=== PATIENT | female | born 1995 | race Caucasian/White ===

== ENCOUNTER → 2019-08-14 | Outpatient (CLI) | payer SELFPAY ==
[~2019-08-14] MED LIST: AMOX250S6 PO; DEXAMETHASONE PO; HYDR15SO6 PO; TETRACAINE LOLLIPOPS PO
--- NOTE | 2019-08-14 12:28 | Diagnostic Imaging Report ---
EXAM: SOFT TISSUE NECK. INDICATION: Neck pain. Headache. COMPARISON: None. FINDINGS: Normal alignment of the cervical spine. No substantial spondylotic change. No acute findings. Normal prevertebral soft tissues. No radiopaque soft tissue density is seen. The lung apices are clear. IMPRESSION: Normal soft tissue neck radiographs. Dictated by: Dictated on workstation # [id number]
== END ==
LOC: RAD FS 11:56
PROVIDERS: ATTEND Nurse Practitioner Family
DX: R22.1 Localized swelling, mass and lump, neck (principal); G44.209 Tension-type headache, unspecified, not intractable; Z87.828 Personal history of other (healed) physical injury and trauma
CPT/HCPCS: 70360

== ENCOUNTER → 2019-08-28 | Outpatient (CLI) | payer SELFPAY ==
--- NOTE | 2019-08-28 14:45 | Diagnostic Imaging Report ---
PROCEDURE: MR imaging of the brain without contrast. TECHNIQUE: Multiplanar, multisequence MR imaging of the brain was performed without contrast. INDICATION: Migraine headaches. COMPARISON: None. FINDINGS: No abnormal intracranial signal. Incidental cavum septum pellucidum. No restricted water diffusion or hemosiderin deposition. Normal morphology of the sella, posterior fossa and cerebellopontine angle. Normal intracranial flow voids. No hydrocephalus or extra-axial fluid collections. The orbits are unremarkable on this nondedicated exam. The paranasal sinuses and mastoids are clear. Normal bone marrow signal. IMPRESSION: No acute intracranial MRI findings. Dictated by: Dictated on workstation # [id number]
== END ==
LOC: RAD 12:34
PROVIDERS: ATTEND Nurse Practitioner Family
DX: G44.209 Tension-type headache, unspecified, not intractable (principal); Z87.828 Personal history of other (healed) physical injury and trauma; G43.909 Migraine, unspecified, not intractable, without status migrainosus
CPT/HCPCS: 70551

== ENCOUNTER 2020-06-02 14:28 | Emergency (ER) | payer SELFPAY ==
--- NOTE | 2020-06-02 14:47 | ED Respiratory ---
General Chief Complaint: Respiratory Problems Stated Complaint: COUGH; SOB; COVID+ History of Present Illness Date Seen by Provider: Jun 02, 2020 Time Seen by Provider: 14:40 Initial Comments 25-year-old female presents from the outpatient clinic with 3-day history of cough and nasal congestion. Seen in the clinic this morning and stated her heart rate was fast, she was given a prescription for an albuterol inhaler and she is used it 14 times today. She was given a call stating that she was positive for Covid and advised to come to the ER because of her shortness of air. Patient's primary complaints last few days with nasal congestion, cough and sore throat. She did vomit once last night. Denies abdominal pain, swelling of extremities or pain of her extremities. She is not a tobacco smoker, but she does vape. Denies any illicit drug use. Denies a Hx of heart problems or tachycardia. Allergies and Home Medications Allergies Coded Allergies: No Known Drug Allergies (Unverified , 11/21/13) Home Medications Amoxicillin Trihydrate 250 Mg/5 Ml Susp.recon, 1 TSP PO BID Prescribed by: SAMANTHA CORREA on 11/23/13 08 Hydrocodone Bit/Acetaminophen 15 Ml Solution, 2 TSP PO Q4H Prescribed by: SAMANTHA CORREA on 11/23/1342 Potassium Chloride 20 Meq Tab.er.prt, 20 MEQ PO DAILY Prescribed by: YEFRI DILLON on 06/02/20 172 [Dexamethasone] , 2 TSP PO DAILY Prescribed by: SAMANTHA CORREA on 11/23/13 08 [Tetracaine Lollipops] , 1 PO UD Prescribed by: SAMANTHA CORREA on 11/23/13 0842 Patient Home Medication List Home Medication List Reviewed: Yes Review of Systems Review of Systems Constitutional: see HPI; No chills, No fever; malaise; No weakness EENTM: see HPI, throat pain; No ear pain, No blurred vision, No mouth pain, No mouth swelling, No throat swelling Respiratory: cough, short of breath; No stridor; wheezing Cardiovascular: No chest pain, No edema, No palpitations, No syncope; other (rapid heart rate) Gastrointestinal: No abdominal pain; nausea, vomiting (x1) Musculoskeletal: No back pain, No joint pain, No muscle pain, No muscle stiffness Skin: No change in color, No lesions, No rash Past Txtysoy-Kuuxvk-Cfnmmx Hx Past Med/Social Hx: Reviewed Nursing Past Med/Soc Hx Physical Exam Vital Signs - First Documented 06/02/20 14:46 Temp 37.2 Pulse 169 Resp 21 B/P (MAP) 136/68 (90) Pulse Ox 98 Capillary Refill : Height: 5'8.00" Weight: 128lbs. oz. 58.995876de; BMI Method: General Appearance: WD/WN, no apparent distress Eyes: Bilateral Eye Normal Inspection, Bilateral Eye PERRL, Bilateral Eye EOMI HEENT: PERRL/EOMI, normal ENT inspection Neck: non-tender, supple Respiratory: chest non-tender, normal breath sounds, no respiratory distress, no accessory muscle use Cardiovascular: no edema, no gallop, no JVD, tachycardia (170's initially, then to 150's as she settled down without intervention) Gastrointestinal: non tender, soft Extremities: normal range of motion, non-tender, no pedal edema, no calf tenderness Neurologic/Psychiatric: no motor/sensory deficits, alert, other (anxious) Skin: normal color, warm/dry Progress/Results/Core Measures Suspected Sepsis SIRS Temperature: Pulse: Respiratory Rate: Laboratory Tests 06/02/20 14:45: White Blood Count 4.7 Blood Pressure / Mean: Laboratory Tests 06/02/20 14:45: Creatinine 0.38L, Platelet Count 185, Total Bilirubin 0.2 Results/Orders Lab Results Laboratory Tests Test 06/02/20 14:45 06/02/20 15:49 Range/Units White Blood Count 4.7 4.3-11.0 10^3/uL Red Blood Count 4.46 4.35-5.85 10^6/uL Hemoglobin 11.8 11.5-16.0 G/DL Hematocrit 36 35-52 % Mean Corpuscular Volume 80 80-99 FL Mean Corpuscular Hemoglobin 26 25-34 PG Mean Corpuscular Hemoglobin Concent 33 32-36 G/DL Red Cell Distribution Width 13.9 10.0-14.5 % Platelet Count 185 130-400 10^3/uL Mean Platelet Volume 11.6 H 7.4-10.4 FL Immature Granulocyte % (Auto) 0 % Neutrophils (%) (Auto) 69 42-75 % Lymphocytes (%) (Auto) 21 12-44 % Monocytes (%) (Auto) 10 0-12 % Eosinophils (%) (Auto) 0 0-10 % Basophils (%) (Auto) 0 0-10 % Neutrophils # (Auto) 3.3 1.8-7.8 X 10^3 Lymphocytes # (Auto) 1.0 1.0-4.0 X 10^3 Monocytes # (Auto) 0.5 0.0-1.0 X 10^3 Eosinophils # (Auto) 0.0 0.0-0.3 10^3/uL Basophils # (Auto) 0.0 0.0-0.1 10^3/uL Immature Granulocyte # (Auto) 0.0 0.0-0.1 10^3/uL Sodium Level 136 135-145 MMOL/L Potassium Level 3.2 L 3.6-5.0 MMOL/L Chloride Level 101 98-107 MMOL/L Carbon Dioxide Level 20 L 21-32 MMOL/L Anion Gap 15 H 5-14 MMOL/L Blood Urea Nitrogen 7 7-18 MG/DL Creatinine 0.38 L 0.60-1.30 MG/DL Estimat Glomerular Filtration Rate > 60 BUN/Creatinine Ratio 18 Glucose Level 131 H 70-105 MG/DL Calcium Level 8.5 8.5-10.1 MG/DL Corrected Calcium 8.7 8.5-10.1 MG/DL Total Bilirubin 0.2 0.1-1.0 MG/DL Aspartate Amino Transf (AST/SGOT) 29 5-34 U/L Alanine Aminotransferase (ALT/SGPT) 30 0-55 U/L Alkaline Phosphatase 96 40-136 U/L Total Protein 6.8 6.4-8.2 GM/DL Albumin 3.7 3.2-4.5 GM/DL Urine Color YELLOW Urine Clarity CLEAR Urine pH 6.0 5-9 Urine Specific [place] 1.020 1.016-1.022 Urine Protein NEGATIVE NEGATIVE Urine Glucose (UA) NEGATIVE NEGATIVE Urine Ketones NEGATIVE NEGATIVE Urine Nitrite NEGATIVE NEGATIVE Urine Bilirubin NEGATIVE NEGATIVE Urine Urobilinogen 0.2 < = 1.0 MG/DL Urine Leukocyte Esterase NEGATIVE NEGATIVE Urine RBC (Auto) NEGATIVE NEGATIVE Urine RBC 0-2 /HPF Urine WBC 0-2 /HPF Urine Squamous Epithelial Cells 2-5 /HPF Urine Crystals NONE /LPF Urine Bacteria NEGATIVE /HPF Urine Casts NONE /LPF Urine Mucus NEGATIVE /LPF Urine Culture Indicated NO Urine Opiates Screen NEGATIVE NEGATIVE Urine Oxycodone Screen NEGATIVE NEGATIVE Urine Methadone Screen NEGATIVE NEGATIVE Urine Propoxyphene Screen NEGATIVE NEGATIVE Urine Barbiturates Screen NEGATIVE NEGATIVE Ur Tricyclic Antidepressants Screen NEGATIVE NEGATIVE Urine Phencyclidine Screen NEGATIVE NEGATIVE Urine Amphetamines Screen NEGATIVE NEGATIVE Urine Methamphetamines Screen NEGATIVE NEGATIVE Urine Benzodiazepines Screen NEGATIVE NEGATIVE Urine Cocaine Screen NEGATIVE NEGATIVE Urine Cannabinoids Screen NEGATIVE NEGATIVE My Orders Orders - ROVENSTYEFRI NUÑEZ DO Ed Iv/Invasive Line Start (06/02/20 14:47) Cbc With Automated Diff (06/02/20 14:47) Comprehensive Metabolic Panel (06/02/20 14:47) Chest 1 View Ap/Pa Only (06/02/20 14:47) Urinalysis (06/02/20 14:47) Drug Screen Stat (Urine) (06/02/20 14:47) Ekg Tracing (06/02/20 14:47) Ns Iv 1000 Ml (Sodium Chloride 0.9%) (06/02/20 15:00) Ns Iv 1000 Ml (Sodium Chloride 0.9%) (06/02/20 15:30) Potassium Chloride (Tablet) (K Dur Table (06/02/20 15:45) Medications Given in ED Current Medications Medications Dose Ordered Sig/Kishor Route Start Time Stop Time Status Last Admin Dose Admin Potassium Chloride 20 meq ONCE ONCE PO 06/02/20 15:45 06/02/20 15:46 DC 06/02/20 15:44 20 MEQ Vital Signs/I&O 06/02/20 14:46 Temp 37.2 Pulse 169 Resp 21 B/P (MAP) 136/68 (90) Pulse Ox 98 Capillary Refill : Progress Note : Progress Note 1630- patient doing well, HR slowing from 170 to 130 now. Given 2 liters NS. Labs unremarkable w exception of mild hypokalemia. Patient admits to using 14 puffs of an inhaler given to her today. Negative UDS. Explained to pt her HR was due to Overdose on albuterol and she should only use 2 puffs q 4h. She now expresses understanding. Breathing is normal, sats 100%, CXR clear. Will continue to monitor until HR slows < 100 After nearly 3 and half hours of observation with the assumption that patient's heart rate was due to an overdose of albuterol, patient tells nurse that she has a normal resting heart rate around 120 and this has been known by her PCP (Jose). She says in the past she did take propranolol and she still has some at home. She was advised to take it for headaches and her heart rate. Evidently she states it has been observed in her PCPs clinic that her heart rate is always high and was assumed she has anxiety. She has never had a formal work-up and is never seen neonatal social worker regarding this condition. Did discuss with her I prefer she follow-up with her PCP in 1 week to consider daily medication to control her rate and I also strongly urged her to see cardiology in consultation for sinus tachycardia. She expresses understanding and agreement. ECG Initial ECG Impression Date: Jun 02, 2020 Initial ECG Rate: 160 Initial ECG Rhythm: S.Tach Initial ECG Intervals: Normal Initial ECG Impression: Normal Departure Impression Primary Impression: Sinus tachycardia Additional Impressions: Hypokalemia Adverse effect of albuterol Qualified Codes: T48.6X5A - Adverse effect of antiasthmatics, initial encounter COVID-19 Disposition: 01 HOME, SELF-CARE Condition: Improved Departure-Patient Inst. Decision time for Depature: 17:56 Referrals: SENG MALHOTRA APRN (PCP) Primary Care Physician [facility] (Family) Primary Care Physician WOO RESTREPO MD Patient Instructions: Sinus Tachycardia (DC), Hypokalemia (DC), Coronavirus Disease 2019 (COVID-19) (DC) Add. Discharge Instructions: follow up with your PCP in 7 days for re-evaluation or sooner for any further questions of concerns. Do no use your inhaler more than 2 puffs every 4 hours....as needed. Take the following vitamins: Vitamin D 4,000iu daily vitamin C 2,000mg twice daily Zinc 50mg daily Melatonin 10mg at bedtime call Dr Restrepo's office to schedule a cardiology consult regarding your resting rapid heart rate. Do not drink caffeine and do not use any nicotine products (including vaping) as these will make your heart rate faster Start the Rx for Toprol tomorrow to control your heart rate. Do not take your propranolol any longer. All discharge instructions reviewed with patient and/or family. Voiced understanding. Scripts Metoprolol Succinate (Toprol Xl) 25 Mg Tab.er.24h 25 MG PO DAILY, #30 TAB Prov: ROVENSTINE,YEFRI L DO 06/02/20 Potassium Chloride (Potassium Chloride) 20 Meq Tab.er.prt 20 MEQ PO DAILY, #5 TAB Prov: YEFRI DILLON DO 06/02/20 Work/School Note: Work Release Form Date Seen in the Emergency Department: Jun 02, 2020 Return to Work: Jun 09, 2020 YEFRI DILLON DO Jun 02, 2020 14:47
[2020-06-02 14:56] LABS: HEMATOCRIT 36 % (35-52); HEMOGLOBIN 11.8 G/DL (11.5-16.0); MEAN CORPUSCULAR HEMOGLOBIN 26 PG (25-34); MEAN CORPUSCULAR VOLUME 80 FL (80-99); WHITE BLOOD COUNT 4.7 10^3/uL (4.3-11.0)
[2020-06-02 14:57] LABS: BASOPHILS % (AUTO) 0 % (0-10); EOSINOPHILS % (AUTO) 0 % (0-10); LYMPHOCYTES % (AUTO) 21 % (12-44); MEAN CORPUSCULAR HGB CONC 33 G/DL (32-36); MEAN PLATELET VOLUME 11.6 FL (7.4-10.4); MONOCYTES # (AUTO) 0.5 X 10^3 (0.0-1.0); MONOCYTES % (AUTO) 10 % (0-12); NEUTROPHILS # (AUTO) 3.3 X 10^3 (1.8-7.8); NEUTROPHILS % (AUTO) 69 % (42-75); PLATELET COUNT 185 10^3/uL (130-400)
[2020-06-02] MEDS ORDERED: NS IV 1000 ML 1,000 ML IV SCH ×2 (15:00→15:30)
[2020-06-02 15:25] LABS: ALANINE AMINOTRANSFERASE 30 U/L (0-55); ALBUMIN 3.7 GM/DL (3.2-4.5); ALKALINE PHOSPHATASE 96 U/L (40-136); BILIRUBIN,TOTAL 0.2 MG/DL (0.1-1.0); BUN/CREATININE RATIO 18; CALCIUM 8.5 MG/DL (8.5-10.1); CARBON DIOXIDE 20 MMOL/L (21-32); CHLORIDE 101 MMOL/L (98-107); CREATININE SERUM 0.38 MG/DL (0.60-1.30); GFR ESTIMATED > 60; GLUCOSE 131 MG/DL (70-105); POTASSIUM 3.2 MMOL/L (3.6-5.0); SODIUM 136 MMOL/L (135-145); TOTAL PROTEIN 6.8 GM/DL (6.4-8.2)
[2020-06-02] MEDS ORDERED: KCL 20 MEQ TAB (K-DUR) PO ONE (15:45)
--- NOTE | 2020-06-02 15:48 | Diagnostic Imaging Report ---
EXAM: CHEST 1 VIEW AP/PA ONLY INDICATION: Shortness of air. Tachycardia. COMPARISON: None. FINDINGS: Normal heart size and pulmonary vascularity. No dense consolidation, pleural effusion or pneumothorax. No acute osseous findings. IMPRESSION: Negative chest. Dictated by: Dictated on workstation # [id number]
[2020-06-02 16:05] LABS: BILIRUBIN,URINE NEGATIVE (NEGATIVE); CLARITY,URINE CLEAR; COLOR,URINE YELLOW; GLUCOSE, URINE (UA) NEGATIVE (NEGATIVE); KETONES,URINE NEGATIVE (NEGATIVE); LEUKOCYTE ESTERASE ,URINE NEGATIVE (NEGATIVE); NITRITE,URINE NEGATIVE (NEGATIVE); PROTEIN,URINE NEGATIVE (NEGATIVE)
[2020-06-02 16:06] LABS: BACTERIA,URINE NEGATIVE /HPF; RBC,URINE 0-2 /HPF; WBC,URINE 0-2 /HPF
[2020-06-02 16:32] LABS: AMPHETAMINE SCREEN, URINE NEGATIVE (NEGATIVE); BARBITURATE SCREEN URINE NEGATIVE (NEGATIVE); BENZODIAZEPINES SCREEN URINE NEGATIVE (NEGATIVE); CANNABINOID SCREEN, URINE NEGATIVE (NEGATIVE); COCAINE SCREEN URINE NEGATIVE (NEGATIVE); METHADONE STAT NEGATIVE (NEGATIVE); METHAMPHETAMINE SCREEN URINE S NEGATIVE (NEGATIVE); OPIATE SCREEN URINE NEGATIVE (NEGATIVE); OXYCODONE STAT NEGATIVE (NEGATIVE); PROPOXYPHENE STAT NEGATIVE (NEGATIVE); TRICYCLIC ANTIDEPRESSANTS SCRE NEGATIVE (NEGATIVE)
[2020-06-02] MEDS ORDERED: POTA20TA15 PO (17:22)
[2020-06-02] MEDS ORDERED: METO-351 PO (17:55)
[2020-06-02 18:02] VITALS: BP 129/66
== END 2020-06-02 18:02 | disposition home or self-care (01) ==
LOC: EDUNIT# 14:28 → ER FS 14:30
DX: R00.0 Tachycardia, unspecified (principal); T48.6X5A Adverse effect of antiasthmatics, initial encounter; U07.1 COVID-19; E87.6 Hypokalemia; Z73.0 Burn-out
CPT/HCPCS: 36415; 71045; 80053; 80306; 81000; 85025; 93005

== ENCOUNTER 2020-07-04 04:04 | Emergency (ER) | payer SELFPAY ==
[~2020-07-04 04:04] MED LIST changes: +METO-351 PO; +POTA20TA15 PO
[2020-07-04] MEDS ORDERED: METOCLOPRAMIDE INJ 10 MG/2 ML (REGLAN) IVP ONE (04:30)
[2020-07-04] MEDS ORDERED: PROCHLORPERAZINE 10 MG/2ML INJ (COMPAZINE) IV ONE (04:30)
[2020-07-04] MEDS ORDERED: NS IV 1000 ML 1,000 ML IV SCH (04:30)
[2020-07-04] MEDS ORDERED: diphenhydrAMINE 50 MG/ML INJ (BENADRYL) IVP ONE (04:30)
[2020-07-04] MEDS ORDERED: PROC-1 PO (05:29)
--- NOTE | 2020-07-04 05:30 | ED General ---
General Chief Complaint: Head/Cervical Problems Stated Complaint: MIGRAINE Nursing Triage Note: Pt complaining of a migraine Nursing Sepsis Screen: No Definite Risk Source of Information: Patient, Family History of Present Illness Date Seen by Provider: July 04, 2020 Time Seen by Provider: 04:30 Initial Comments Patient is a 25-year-old female with a history of recurrent migraines who presents with typical migraine-like headache. Headache began yesterday while sleeping. Headache is retro-orbital, dull nonmigratory and rated moderate and waxes and wanes.. It is made worse with light sensitivity and loud noises and has partial relief with medications patient received yesterday at her PCPs office. Patient denies known triggering event. Denies sinus tenderness, congestion, sore throat, fever, cough. No neck pain, extremity weakness or loss of sensation. No other acute symptoms or complaints. Timing/Duration: 24 Hours Severity: Moderate Modifying Factors: improves with Other Associated Systoms: Other Allergies and Home Medications Allergies Coded Allergies: No Known Drug Allergies (Unverified , 11/21/13) Home Medications Amoxicillin Trihydrate 250 Mg/5 Ml Susp.recon, 1 TSP PO BID Prescribed by: SAMANTHA CORREA on 11/23/13841 Hydrocodone Bit/Acetaminophen 15 Ml Solution, 2 TSP PO Q4H Prescribed by: SAMANTHA CORREA on 11/23/13841 Metoprolol Succinate 25 Mg Tab.er.24h, 25 MG PO DAILY Prescribed by: YEFRI ALVAREZSTSAVANNAH on 06/02/20 1755 Potassium Chloride 20 Meq Tab.er.prt, 20 MEQ PO DAILY Prescribed by: YEFRI DILLON on 06/02/20 1722 [Dexamethasone] , 2 TSP PO DAILY Prescribed by: SAMANTHA CORREA on 11/23/13 0842 [Tetracaine Lollipops] , 1 PO UD Prescribed by: SAMANTHA CORREA on 11/23/13841 Patient Home Medication List Home Medication List Reviewed: Yes Review of Systems Review of Systems Constitutional: see HPI EENTM: see HPI Respiratory: see HPI Cardiovascular: see HPI Gastrointestinal: see HPI Genitourinary: see HPI Musculoskeletal: see HPI Skin: see HPI Psychiatric/Neurological: See HPI Hematologic/Lymphatic: See HPI Immunological/Allergic: see HPI All Other Systems Reviewed Negative Unless Noted: Yes Past Csxjbgd-Tpvjqo-Vzzict Hx Past Med/Social Hx: Reviewed Nursing Past Med/Soc Hx Patient Social History Alcohol Use: Denies Use Type Used: Electronic/Vapor 2nd Hand Smoke Exposure: Yes Recent Infectious Disease Expo: No Past Medical History Surgeries: Yes (bmt) Respiratory: No Cardiac: No Neurological: Yes Headaches /Migraines Genitourinary: No Gastrointestinal: No Musculoskeletal: No Endocrine: No HEENT: No Cancer: No Psychosocial: No Integumentary: No Blood Disorders: No Physical Exam Vital Signs Vital Signs - First Documented 07/04/20 04:10 Pulse 115 Resp 18 B/P (MAP) 143/87 (105) Pulse Ox 100 O2 Delivery Room Air Capillary Refill : Less Than 3 Seconds Height, Weight, BMI Height: 5'8.00" Weight: 128lbs. oz. 58.580744fq; BMI Method: General Appearance: Anxious, Moderate Distress Eyes: Bilateral Eye Normal Inspection, Bilateral Eye PERRL, Bilateral Eye EOMI HEENT: PERRL/EOMI, Normal ENT Inspection, Pharynx Normal, Moist Mucous Membranes Neck: Normal Inspection, Non Tender, Supple Respiratory: Lungs Clear Cardiovascular: Regular Rate, Rhythm Neurologic/Psychiatric: Alert, Oriented x3, No Motor/Sensory Deficits, Normal Mood/Affect, vendor management associate II-XII Norm as Tested Focused Exam Sepsis Stage: Ruled Out Progress/Results/Core Measures Suspected Sepsis Recent Fever Within 48 Hours: No Infection Criteria Present: None New/Unexplained Altered Menta: No Sepsis Screen: No Definite Risk SIRS Temperature: Pulse: 115 Respiratory Rate: 18 Blood Pressure 143 /87 Mean: 105 Results/Orders My Orders Orders - COLTON GARY Iv 1000 Ml (Sodium Chloride 0.9%) (07/04/20 04:30) Dexamethasone Injection (Decadron Injec (07/04/20 04:30) Metoclopramide Injection (Reglan Injecti (07/04/20 04:30) Prochlorperazine Injection (Compazine In (07/04/20 04:30) Diphenhydramine Injection (Benadryl Inje (07/04/20 04:30) Urine Bedside (07/04/20 04:22) Ed Iv/Invasive Line Start (07/04/20 04:59) Medications Given in ED Current Medications Medications Dose Ordered Sig/Kishor Route Start Time Stop Time Status Last Admin Dose Admin Dexamethasone Sodium Phosphate 10 mg ONCE ONCE IV 07/04/20 04:30 07/04/20 04:31 DC 07/04/20 04:36 10 MG Diphenhydramine HCl 50 mg ONCE ONCE IVP 07/04/20 04:30 07/04/20 04:31 DC 07/04/20 04:36 50 MG Metoclopramide HCl 10 mg ONCE ONCE IVP 07/04/20 04:30 07/04/20 04:31 DC 07/04/20 04:37 10 MG Prochlorperazine Edisylate 10 mg ONCE ONCE IV 07/04/20 04:30 07/04/20 04:31 DC 07/04/20 04:37 10 MG Vital Signs/I&O 07/04/20 04:10 Pulse 115 Resp 18 B/P (MAP) 143/87 (105) Pulse Ox 100 O2 Delivery Room Air Capillary Refill : Less Than 3 Seconds Blood Pressure Mean: 105 Departure Communication (Admissions) Typical migraine headache. This is not the headache worst headache of the patient's life. Headache resolved with treatment. Recommendations for home rest and PCP follow-up. Return precautions reviewed Impression Primary Impression: Migraine Disposition: HOME, SELF-CARE Condition: Critical Departure-Patient Inst. Decision time for Depature: 05:28 Referrals: SENG MALHOTRA APRN (PCP) Primary Care Physician [facility] (Family) Primary Care Physician Patient Instructions: Migraines in Adults Add. Discharge Instructions: Please go home and rest. Take Excedrin Migraine and Compazine as needed if headache returns. Otherwise follow-up with your PCP and/or neurologist for further management. Return to the ED if new or worsening symptoms. All discharge instructions reviewed with patient and/or family. Voiced understanding. Scripts Prochlorperazine Maleate (Compazine) 10 Mg Tablet 10 MG PO Q8H, #10 TAB Prov: COLTON GARY DO 07/04/20 COLTON GARY DO July 04, 2020 05:30
[2020-07-04 05:31] VITALS: BP 143/87
== END 2020-07-04 05:32 | disposition home or self-care (01) ==
LOC: EDUNIT# 04:04 → ER FS 04:07
DX: G43.909 Migraine, unspecified, not intractable, without status migrainosus (principal); Z77.22 Contact with and (suspected) exposure to environmental tobacco smoke (acute) (chronic)
CPT/HCPCS: 84703

== ENCOUNTER 2020-12-05 17:28 | Emergency (ER) | payer SELFPAY ==
[~2020-12-05] VITALS: Ht 170 cm; Wt 72.2 kg
[~2020-12-05 17:28] MED LIST changes: +PROC-1 PO
--- NOTE | 2020-12-05 17:37 | ED EENT ---
History of Present Illness General Stated Complaint: SORE THROAT; HEADACHE; DIARRHEA; NAUSEA History of Present Illness Date Seen by Provider: Dec 05, 2020 Time Seen by Provider: 17:37 Initial Comments 25-year-old female presents with some nausea, headache, sore throat. She reports it hurts to swallow she feels like her throat is on fire. Patient reports that the symptoms started 2 days ago. Patient was seen yesterday and tested negative for strep influenza and Covid. She presents today because she is continuing to feel bad. Patient reports that she is already had 2 previous Covid positive diagnosis. Patient denies any cough, shortness of breath, chest pain. Allergies and Home Medications Allergies Coded Allergies: No Known Drug Allergies (Unverified , 11/21/13) Patient Home Medication List Home Medication List Reviewed: Yes Amoxicillin Trihydrate (Amoxicillin) 250 Mg/5 Ml Susp.recon, 1 TSP PO BID Prescribed by: SAMANTHA CORREA on 11/23/13 0842 Hydrocodone Bit/Acetaminophen (Lortab 7.5-325 Mg/15 Ml Udc) 15 Ml Solution, 2 TSP PO Q4H Prescribed by: SAMANTHA CORREA on 11/23/13 0842 Metoprolol Succinate (Toprol Xl) 25 Mg Tab.er.24h, 25 MG PO DAILY Prescribed by: YEFRI DILLON on 06/02/20 1755 Potassium Chloride (Potassium Chloride) 20 Meq Tab.er.prt, 20 MEQ PO DAILY Prescribed by: YEFRI DILLON on 06/02/20 1722 Prochlorperazine Maleate (Compazine) 10 Mg Tablet, 10 MG PO Q8H Prescribed by: COLTON GARY on 07/04/20 0529 [Dexamethasone] , 2 TSP PO DAILY Prescribed by: SAMANTHA CORREA on 11/23/13 0842 [Tetracaine Lollipops] , 1 PO UD Prescribed by: SAMANTHA CORREA on 11/23/13 0842 Review of Systems Review of Systems Constitutional: fever, malaise Throat: pain, painful swallowing Respiratory: No cough Gastrointestinal: No abdominal pain; nausea Musculoskeletal: no symptoms reported Skin: no symptoms reported Neurological: Headache Past Rdygczc-Jlfnyl-Sjbhil Hx Past Medical History Surgeries: Yes (bmt) Respiratory: No Cardiac: No Neurological: Yes Headaches /Migraines Genitourinary: No Gastrointestinal: No Musculoskeletal: No Endocrine: No HEENT: No Cancer: No Psychosocial: No Integumentary: No Blood Disorders: No Physical Exam Height, Weight, BMI Height: 5'8.00" Weight: 128lbs. oz. 58.418706gi; BMI Method: General Appearance: WD/WN, no apparent distress Mouth/Throat: pharynx tenderness, other (Mild petechiae, erythema in the posterior pharynx with what appears to be some mild exudate) Cardiovascular: normal peripheral pulses, tachycardia (Chronic) Respiratory: lungs clear, normal breath sounds Gastrointestinal: non tender, soft Neurologic/Psychiatric: alert, normal mood/affect, oriented x 3 Skin: normal color, warm/dry Progress/Results/Core Measures Results/Orders Lab Results Laboratory Tests Test 12/05/20 17:42 Range/Units Group A Streptococcus Screen NEGATIVE NEGATIVE My Orders Orders - SMILEY BLACKMAN DO Rapid Strep A Screen (12/05/20 17:40) Lidocaine 2% Viscous 15 Ml (Xylocaine Vi (12/05/20 17:45) Dexamethasone Injection (Decadron Inje (12/05/20 17:45) Progress Progress Note : Progress Note Discussed with patient that she has a viral syndrome/pharyngitis. Is negative for strep. She was negative for influenza and Covid yesterday along with strep. We will await cultures to see if she needs to be treated for further outpatient for strep. I did discuss with her the possibility of mono but it is supportive care. Patient was given 10mg of dexamethasone. I discussed with her that she should not return to work till least and then will provide her a note. Patient stable and discharged Departure Impression Primary Impression: Pharyngitis with viral syndrome Disposition: 01 HOME, SELF-CARE Condition: Stable Departure-Patient Inst. Referrals: SENG MALHOTRA APRN (PCP) Primary Care Physician [facility] (Family) Primary Care Physician Patient Instructions: Viral Syndrome (DC), Sore Throat, Adult ED Add. Discharge Instructions: Salt water gargle Tylenol ibuprofen as needed for fever and chills Work/School Note: Work Release Form Date Seen in the Emergency Department: Dec 05, 2020 Return to Work: Dec 07, 2020 Restrictions: Return-No Fever (24hrs), Return-No Vomiting(24hrs) SMILEY BLACKMAN DO Dec 05, 2020 17:37
[2020-12-05] MEDS ORDERED: LIDOCAINE 2% VISCOUS 15 ML UDC PO ONE (17:45)
[2020-12-05 18:18] VITALS: BP 156/92
== END 2020-12-05 18:17 | disposition home or self-care (01) ==
LOC: EDUNIT# 17:28 → ER FS 17:30
DX: J02.9 Acute pharyngitis, unspecified (principal); B34.9 Viral infection, unspecified
CPT/HCPCS: 36415; 86308; 87430; 99283

== ENCOUNTER 2021-06-24 20:59 | Emergency (ER) | payer SELFPAY ==
[~2021-06-24] VITALS: Ht 170 cm; Wt 92.6 kg
[~2021-06-24 20:59] MED LIST changes: +POTA-179 PO; -POTA20TA15 PO
[2021-06-24] MEDS ORDERED: NS IV 1000 ML 1,000 ML IV STA (21:11)
--- NOTE | 2021-06-24 21:12 | ED General ---
General Stated Complaint: OB,ABNORMAL BLEEDING Source of Information: Patient, Spouse History of Present Illness Date Seen by Provider: Jun 24, 2021 Time Seen by Provider: 21:00 Initial Comments 26-year-old female that is G2, P0 with 1 spontaneous presenting with complaints of vaginal spotting and pelvic cramping. She states this is been off and on over the last 2 days. She had more spotting today that she noticed after using the bathroom. She would see blood when she wiped after going to the bathroom. She said that there was a small amount of blood on a pad that she has on now. She had pain up to 6 earlier today but this afternoon and evening it has been a 2-3. She has not had recent intercourse since finding out she was . She has an appointment to see OB on July 01. She has hypothyroid but is not taking any medicine for that. She did take Tylenol for some abdominal cramping and pain earlier today. Timing/Duration: 2-3 Days Severity: Mild Associated Systoms: No Chest Pain, No Cough, No Diaphoresis, No Fever/Chills, No Headaches, No Loss of Appetite, No Malaise, No Nausea/Vomiting, No Rash, No Seizure, No Shortness of Air, No Syncope, No Weakness Allergies and Home Medications Allergies Coded Allergies: No Known Drug Allergies (Unverified , 11/21/13) Patient Home Medication List Home Medication List Reviewed: Yes Cephalexin (Cephalexin) 500 Mg Capsule, 500 MG PO Q6H Prescribed by: JV EDMONDSON on 06/24/215 Discontinued Medications Amoxicillin Trihydrate (Amoxicillin) 250 Mg/5 Ml Susp.recon, 1 TSP PO BID Prescribed by: SAMANTHA CORREA on 11/23/13 0842 Hydrocodone Bit/Acetaminophen (Lortab 7.5-325 Mg/15 Ml Udc) 15 Ml Solution, 2 TSP PO Q4H Prescribed by: SAMANTHA CORREA on 11/23/13 0842 Metoprolol Succinate (Toprol Xl) 25 Mg Tab.er.24h, 25 MG PO DAILY Prescribed by: YEFRI ALVAREZSTSAVANNAH on 06/02/20 175 Potassium Chloride (Potassium Chloride) 20 Meq Tab.er.prt, 20 MEQ PO DAILY Prescribed by: YEFRI DILLON on 06/02/20 172 Prochlorperazine Maleate (Compazine) 10 Mg Tablet, 10 MG PO Q8H Prescribed by: COLTON GARY on 07/04/20 0529 [Dexamethasone] , 2 TSP PO DAILY Prescribed by: SAMANTHA CORREA on 11/23/13 08 [Tetracaine Lollipops] , 1 PO UD Prescribed by: SAMANTHA CORREA on 11/23/13841 Review of Systems Review of Systems Constitutional: No chills, No fever EENTM: no symptoms reported Respiratory: no symptoms reported Cardiovascular: no symptoms reported Gastrointestinal: No nausea, No vomiting Genitourinary: other (Blood on the tissue paper after urinating when she wipes) : Yes LMP: May 05, 2021 Musculoskeletal: no symptoms reported Skin: no symptoms reported Psychiatric/Neurological: Anxiety Past Oytgcul-Numewv-Fcezmv Hx Patient Social History Tobacco Use?: Yes Tobacco type used: Cigarettes Smoking Status: Current Everyday Smoker (She is cutting back and is down to 7 cigarettes a day) Use of E-Cig and/or Vaping dev: No Substance use?: No Alcohol Use?: No Immunizations Up To Date First/Initial COVID19 Vaccinat: August 2020 Past Medical History Surgery/Hospitalization HX: Pt reports COVID+ twice in the last 6 months, hyperthyroid Surgeries: Yes (bmt) Respiratory: No Cardiac: No Neurological: Yes Headaches /Migraines Genitourinary: No Gastrointestinal: No Musculoskeletal: No Endocrine: No HEENT: No Cancer: No Psychosocial: No Integumentary: No Blood Disorders: No Physical Exam Vital Signs Vital Signs - First Documented 06/24/21 21:28 Temp 37.9 Pulse 125 Resp 18 B/P (MAP) 156/98 (117) Pulse Ox 100 O2 Delivery Room Air Capillary Refill : Height, Weight, BMI Height: 5'8.00" Weight: 128lbs. oz. 58.917671zg; 24.00 BMI Method: General Appearance: WD/WN, Anxious HEENT: PERRL/EOMI, Pharynx Normal Neck: Full Range of Motion, Normal Inspection, Non Tender, Supple Respiratory: Chest Non Tender, Lungs Clear, Normal Breath Sounds, No Accessory Muscle Use, No Respiratory Distress Cardiovascular: Normal Peripheral Pulses, Tachycardia Gastrointestinal: Normal Bowel Sounds, No Pulsatile Mass, Non Tender, Soft Rectal: Deferred Extremity: Normal Capillary Refill, Normal Inspection, No Pedal Edema Neurologic/Psychiatric: Alert, Oriented x3, No Motor/Sensory Deficits, printing roller polisher II- XII Norm as Tested Skin: Normal Color, Warm/Dry Progress/Results/Core Measures Suspected Sepsis SIRS Temperature: Pulse: Respiratory Rate: Laboratory Tests 06/24/21 21:16: White Blood Count 9.4 Blood Pressure / Mean: Laboratory Tests 06/24/21 21:16: Creatinine 0.50L, Platelet Count 334, Total Bilirubin 0.2 Results/Orders Lab Results Laboratory Tests Test 06/24/21 21:16 Range/Units White Blood Count 9.4 4.3-11.0 10^3/uL Red Blood Count 4.86 3.80-5.11 10^6/uL Hemoglobin 12.4 11.5-16.0 g/dL Hematocrit 39 35-52 % Mean Corpuscular Volume 79 L 80-99 fL Mean Corpuscular Hemoglobin 26 25-34 pg Mean Corpuscular Hemoglobin Concent 32 32-36 g/dL Red Cell Distribution Width 15.7 H 10.0-14.5 % Platelet Count 334 130-400 10^3/uL Mean Platelet Volume 10.4 9.0-12.2 fL Immature Granulocyte % (Auto) 0 % Neutrophils (%) (Auto) 62 42-75 % Lymphocytes (%) (Auto) 30 12-44 % Monocytes (%) (Auto) 6 0-12 % Eosinophils (%) (Auto) 1 0-10 % Basophils (%) (Auto) 0 0-10 % Neutrophils # (Auto) 5.8 1.8-7.8 10^3/uL Lymphocytes # (Auto) 2.8 1.0-4.0 10^3/uL Monocytes # (Auto) 0.6 0.0-1.0 10^3/uL Eosinophils # (Auto) 0.1 0.0-0.3 10^3/uL Basophils # (Auto) 0.0 0.0-0.1 10^3/uL Immature Granulocyte # (Auto) 0.0 0.0-0.1 10^3/uL Urine Color YELLOW Urine Clarity SL CLOUDY Urine pH 7.5 5-9 Urine Specific [place] 1.020 1.016-1.022 Urine Protein NEGATIVE NEGATIVE Urine Glucose (UA) NEGATIVE NEGATIVE Urine Ketones NEGATIVE NEGATIVE Urine Nitrite NEGATIVE NEGATIVE Urine Bilirubin NEGATIVE NEGATIVE Urine Urobilinogen 0.2 < = 1.0 MG/DL Urine Leukocyte Esterase TRACE H NEGATIVE Urine RBC (Auto) 2+ H NEGATIVE Urine RBC 50-100 H /HPF Urine WBC 5-10 H /HPF Urine Squamous Epithelial Cells 5-10 /HPF Urine Crystals NONE /LPF Urine Bacteria FEW H /HPF Urine Casts NONE /LPF Urine Mucus SMALL H /LPF Urine Culture Indicated YES Sodium Level 136 135-145 MMOL/L Potassium Level 3.6 3.6-5.0 MMOL/L Chloride Level 102 98-107 MMOL/L Carbon Dioxide Level 24 21-32 MMOL/L Anion Gap 10 5-14 MMOL/L Blood Urea Nitrogen 10 7-18 MG/DL Creatinine 0.50 L 0.60-1.30 MG/DL Estimat Glomerular Filtration Rate 134 BUN/Creatinine Ratio 20 Glucose Level 102 70-105 MG/DL Calcium Level 9.7 8.5-10.1 MG/DL Corrected Calcium 9.4 8.5-10.1 MG/DL Total Bilirubin 0.2 0.1-1.0 MG/DL Aspartate Amino Transf (AST/SGOT) 17 5-34 U/L Alanine Aminotransferase (ALT/SGPT) 20 0-55 U/L Alkaline Phosphatase 122 40-136 U/L Total Protein 7.9 6.4-8.2 GM/DL Albumin 4.4 3.2-4.5 GM/DL Lipase 24 8-78 U/L Human Chorionic Gonadotropin, Quant 11 H <5 MIU/ML My Orders Orders - JV EDMONDSON MD Comprehensive Metabolic Panel (06/24/21 21:11) Lipase (06/24/21 21:11) Ua Culture If Indicated (06/24/21 21:11) Ed Iv/Invasive Line Start (06/24/21 21:11) Cbc With Automated Diff (06/24/21 21:11) Hcg,Quantitative (06/24/21 21:11) Ns Iv 1000 Ml (Sodium Chloride 0.9%) (06/24/21 21:11) Urine Culture (06/24/21 21:16) Ceftriaxone 1 Gm Pre-Mix (Rocephin 1 Gm (06/24/21 21:48) Vital Signs/I&O 06/24/21 06/24/21 06/24/21 21:28 21:32 22:01 Temp 37.9 Pulse 125 109 104 Resp 18 18 18 B/P (MAP) 156/98 (117) 134/88 132/80 Pulse Ox 100 100 98 O2 Delivery Room Air Room Air Room Air Capillary Refill : Progress Note #1: Progress Note Obtain urinalysis and basic labs along with quantitative hCG. Try giving normal saline 1 L IV fluid bolus to try and help with her tachycardia and see if it helps with the pelvic cramping. Progress Note #2: Progress Note Labs are all stable without acute significant normality other than she does have a findings for blood and bacteria in her urine. We will treat for UTI with a gram of Rocephin here and discharged on cephalexin. For her quantitative hCG she has a level of 11. Counseled patient that she could have a miscarriage with her having a low hormone level and bleeding during . It could just be that she is really early in and will need to get a repeat hormone level in 48 hours and try to get an ultrasound. Given order for an outpatient ultrasound to be done tomorrow and advised to check with the clinic about getting a repeat hormone level on Tuesday. Counseled on return precautions. Departure Impression Primary Impression: Bleeding in early Additional Impression: UTI (urinary tract infection) in in first trimester Disposition: 01 HOME, SELF-CARE Condition: Stable Departure-Patient Inst. Decision time for Depature: 21:46 Referrals: SENG MALHOTRA APRN (PCP) Primary Care Physician [facility] (Family) Primary Care Physician Patient Instructions: Bleeding in Early ED, Urinary Tract Infections in Add. Discharge Instructions: Stay well-hydrated and drink plenty of water. Take the full course of antibiotics to treat for urinary tract infection. Call radiology scheduling at [phone]. Call this number between 7 and 7:30 in the morning to schedule an ultrasound for tomorrow. You could also try calling the [facility] at [phone] and ask to have an ultrasound scheduled on , June 25. If that did not help by tech available through the [facility] then you could go to [facility] to have the ultrasound done. Make sure that you do not have intercourse or use any tampons as you should not be inserting anything in the vagina while you are having bleeding during pre gnancy. Follow-up with your OB doctor as soon as possible. You should have a recheck of your hormone level Tuesday to see if it is going up. If you have bleeding to the point that you are saturating more than a pad an hour for 2 hours, getting dizzy/lightheaded, have fever over 101 F then seek medical care for further evaluation. Scripts Cephalexin (Cephalexin) 500 Mg Capsule 500 MG PO Q6H for UTI in for 5 Days, #20 CAP 0 Refills Prov: JV EDMONDSON MD 06/24/21 JV EDMONDSON MD Jun 24, 2021 21:12
[2021-06-24 21:18] LABS: BASOPHILS % (AUTO) 0 % (0-10); EOSINOPHILS # (AUTO) 0.1 10^3/uL (0.0-0.3); EOSINOPHILS % (AUTO) 1 % (0-10); HEMATOCRIT 39 % (35-52); HEMOGLOBIN 12.4 g/dL (11.5-16.0); LYMPHOCYTES # (AUTO) 2.8 10^3/uL (1.0-4.0); LYMPHOCYTES % (AUTO) 30 % (12-44); MEAN CORPUSCULAR HEMOGLOBIN 26 pg (25-34); MEAN CORPUSCULAR HGB CONC 32 g/dL (32-36); MEAN CORPUSCULAR VOLUME 79 fL (80-99); MEAN PLATELET VOLUME 10.4 fL (9.0-12.2); MONOCYTES # (AUTO) 0.6 10^3/uL (0.0-1.0); MONOCYTES % (AUTO) 6 % (0-12); NEUTROPHILS # (AUTO) 5.8 10^3/uL (1.8-7.8); NEUTROPHILS % (AUTO) 62 % (42-75); PLATELET COUNT 334 10^3/uL (130-400); WHITE BLOOD COUNT 9.4 10^3/uL (4.3-11.0)
[2021-06-24 21:19] LABS: BILIRUBIN,URINE NEGATIVE (NEGATIVE); CLARITY,URINE SL CLOUDY; COLOR,URINE YELLOW; GLUCOSE, URINE (UA) NEGATIVE (NEGATIVE); KETONES,URINE NEGATIVE (NEGATIVE); LEUKOCYTE ESTERASE ,URINE TRACE (NEGATIVE); NITRITE,URINE NEGATIVE (NEGATIVE); PH,URINE 7.5 (5-9); PROTEIN,URINE NEGATIVE (NEGATIVE)
[2021-06-24 21:26] LABS: BACTERIA,URINE FEW /HPF; RBC,URINE 50-100 /HPF
[2021-06-24 21:28] VITALS: BP 156/98
[2021-06-24 21:41] LABS: POTASSIUM 3.6 MMOL/L (3.6-5.0)
[2021-06-24 21:42] LABS: ALBUMIN 4.4 GM/DL (3.2-4.5); BILIRUBIN,TOTAL 0.2 MG/DL (0.1-1.0); CALCIUM 9.7 MG/DL (8.5-10.1); CREATININE SERUM 0.5 MG/DL (0.60-1.30); TOTAL PROTEIN 7.9 GM/DL (6.4-8.2)
[2021-06-24] MEDS ORDERED: CEPH500C PO (21:45)
[2021-06-24] MEDS ORDERED: cefTRIAXone 1 GM PRE-MIX 50 ML IV STA (21:48)
== END 2021-06-24 22:13 | disposition home or self-care (01) ==
LOC: EDUNIT# 20:59 → ER FS 21:00
DX: O20.9 Hemorrhage in early pregnancy, unspecified (principal); O23.41 Unspecified infection of urinary tract in pregnancy, first trimester; F17.210 Nicotine dependence, cigarettes, uncomplicated; Z3A.00 Weeks of gestation of pregnancy not specified
CPT/HCPCS: 36415; 80053; 81000; 83690; 84702; 85025; 87088

== ENCOUNTER 2021-08-06 22:22 | Emergency (ER) | payer SELFPAY ==
[~2021-08-06] VITALS: Ht 170 cm; Wt 93.6 kg
[~2021-08-06 22:22] MED LIST changes: +CEPH500C PO
[2021-08-06 22:23] VITALS: BP 153/101
[2021-08-06] MEDS ORDERED: IBUPROFEN 600 MG (MOTRIN) TAB PO ONE (22:30)
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
[2021-08-06] MEDS ORDERED: ACHD5005 PO (22:54)
--- NOTE | 2021-08-06 22:58 | Diagnostic Imaging Report ---
Indication: Right knee pain 3 views the right knee show no fracture, dislocation or other acute abnormalities. There may be a joint effusion. IMPRESSION: Suspected joint effusion. No fracture seen. Dictated by: Dictated on workstation # [id number]
[2021-08-06] MEDS ORDERED: HYDROcodone/APAP 5 MG/325 MG (LORTAB) TAB PO ONE (23:00)
== END 2021-08-06 23:10 | disposition home or self-care (01) ==
LOC: EDUNIT# 22:22 → ER FS 22:23
DX: S80.01XA Contusion of right knee, initial encounter (principal); F17.210 Nicotine dependence, cigarettes, uncomplicated; Z86.16 Personal history of COVID-19; V00.141A Fall from scooter (nonmotorized), initial encounter
CPT/HCPCS: 73562; 99282; L1830

== ENCOUNTER 2022-06-28 20:40 | Emergency (ER) | payer MEDICAID ==
[~2022-06-28] VITALS: Ht 170.2 cm; Wt 97.1 kg
[~2022-06-28 20:40] MED LIST changes: +ACHD5005 PO
[2022-06-28 20:50] VITALS: BP 138/99
--- NOTE | 2022-06-28 21:12 | ED Abdominal Pain ---
General Stated Complaint: ABD PAIN,BLOODY STOOL Source of Information: Patient History of Present Illness Date Seen by Provider: June 28, 2022 Time Seen by Provider: 20:47 Initial Comments 27-year-old female presenting with complaints of abdominal pressure and pain rectally for the last 2 months. She has an appointment to see Dr. Berg in [place] on July 15 regarding the rectal pressure and pain as well as intermittent loose stools. She had gone to the bathroom tonight and there was some bright red blood and clots that came out along with the soft stool. She denies having blood prior to tonight. She did check to make sure it was not bleeding vaginally. Her pain and pressure just occurs when she goes to the bathroom and then resolves. Timing/Duration: Intermittent (for 2 months but only noticed blood tonight) Severity/Quality: Moderate, Cramping Radiation: No Radiation Activities at Onset: None Associated Symptoms: No Back Pain, No Chest Pain, No Diaphoresis, No Fever/Chills, No Fatigue, No Headache, No Heartburn, No Nausea/Vomiting, No Shortness of Air, No Swelling/Mass in Abdomen, No Syncope, No Weakness Allergies and Home Medications Allergies Coded Allergies: No Known Drug Allergies (Unverified , 11/21/13) Patient Home Medication List Home Medication List Reviewed: Yes Cephalexin (Cephalexin) 500 Mg Capsule, 500 MG PO Q6H Prescribed by: JV EDMONDSON on 06/24/212144 Hydrocodone Bit/Acetaminophen (HYDROcodone/APAP 5 MG/325 MG TAB) 1 Tab Tab, 1 TAB PO Q8H PRN for PAIN-SEVERE (8-10) Prescribed by: TIMOTHY SALGADO on 08/06/21 2255 Review of Systems Review of Systems Constitutional: No chills, No fever EENTM: No Symptoms Reported Respiratory: No Symptoms Reported Cardiovascular: No Symptoms Reported Gastrointestinal: See HPI Genitourinary: Denies Burning, Denies Pain Musculoskeletal: no symptoms reported Skin: no symptoms reported Psychiatric/Neurological: No Symptoms Reported Endocrine: No Symptoms Reported Past Lagkwjh-Xlpsio-Pavrqe Hx Immunizations Up To Date First/Initial COVID19 Vaccinat: August 2020 Past Medical History Surgery/Hospitalization HX: Pt reports COVID+ twice in the last 6 months, hyperthyroid Surgeries: Yes (bmt) Respiratory: No Cardiac: No Neurological: Yes Headaches /Migraines Genitourinary: No Gastrointestinal: No Musculoskeletal: No Endocrine: No HEENT: No Cancer: No Psychosocial: No Integumentary: No Blood Disorders: No Physical Exam Vital Signs Vital Signs - First Documented 06/28/22 20:50 Temp 36.9 Pulse 104 Resp 20 B/P (MAP) 138/99 (112) Pulse Ox 100 O2 Delivery Room Air Capillary Refill : Height/Weight/BMI Height: 5'8.00" Weight: 128lbs. oz. 58.009326aq; 32.00 BMI Method: General Appearance: WD/WN, no apparent distress Respiratory: chest non-tender, lungs clear, normal breath sounds, no respiratory distress, no accessory muscle use Cardiovascular: normal peripheral pulses, regular rate, rhythm Gastrointestinal: normal bowel sounds, non tender, soft, no pulsatile mass Rectal: hemorrhoids (small hemorrhoid at 6 o'clock position. no active bleeding or old blood seen) Extremities: normal range of motion, non-tender, normal capillary refill Back: no CVA tenderness Neurologic/Psychiatric: alert, oriented x 3 Skin: normal color, warm/dry Progress/Results/Core Measures Results/Orders Lab Results Laboratory Tests Test 06/28/22 21:05 Range/Units White Blood Count 8.9 4.3-11.0 10^3/uL Red Blood Count 4.28 3.80-5.11 10^6/uL Hemoglobin 9.9 L 11.5-16.0 g/dL Hematocrit 33 L 35-52 % Mean Corpuscular Volume 77 L 80-99 fL Mean Corpuscular Hemoglobin 23 L 25-34 pg Mean Corpuscular Hemoglobin Concent 30 L 32-36 g/dL Red Cell Distribution Width 15.2 H 10.0-14.5 % Platelet Count 412 H 130-400 10^3/uL Mean Platelet Volume 11.0 9.0-12.2 fL Immature Granulocyte % (Auto) 0 % Neutrophils (%) (Auto) 63 42-75 % Lymphocytes (%) (Auto) 29 12-44 % Monocytes (%) (Auto) 5 0-12 % Eosinophils (%) (Auto) 2 0-10 % Basophils (%) (Auto) 1 0-10 % Neutrophils # (Auto) 5.6 1.8-7.8 10^3/uL Lymphocytes # (Auto) 2.6 1.0-4.0 10^3/uL Monocytes # (Auto) 0.4 0.0-1.0 10^3/uL Eosinophils # (Auto) 0.2 0.0-0.3 10^3/uL Basophils # (Auto) 0.1 0.0-0.1 10^3/uL Immature Granulocyte # (Auto) 0.0 0.0-0.1 10^3/uL Prothrombin Time 12.5 12.2-14.7 SEC INR Comment 0.9 0.8-1.4 Activated Partial Thromboplast Time 28 24-35 SEC Sodium Level 139 135-145 MMOL/L Potassium Level 3.4 L 3.6-5.0 MMOL/L Chloride Level 104 98-107 MMOL/L Carbon Dioxide Level 22 21-32 MMOL/L Anion Gap 13 5-14 MMOL/L Blood Urea Nitrogen 13 7-18 MG/DL Creatinine 0.66 0.60-1.30 MG/DL Estimat Glomerular Filtration Rate 125 BUN/Creatinine Ratio 20 Glucose Level 97 70-105 MG/DL Calcium Level 9.5 8.5-10.1 MG/DL Corrected Calcium 9.1 8.5-10.1 MG/DL Total Bilirubin < 0.2 0.1-1.0 MG/DL Aspartate Amino Transf (AST/SGOT) 18 5-34 U/L Alanine Aminotransferase (ALT/SGPT) 21 0-55 U/L Alkaline Phosphatase 111 40-136 U/L Total Protein 7.6 6.4-8.2 GM/DL Albumin 4.5 3.2-4.5 GM/DL Lipase 36 8-78 U/L My Orders Orders - JV EDMONDSON MD Comprehensive Metabolic Panel (06/28/22 20:50) Lipase (06/28/22 20:50) Ed Iv/Invasive Line Start (06/28/22 20:50) Cbc With Automated Diff (06/28/22 20:50) Ct Abdomen/Pelvis W (06/28/22 20:50) Protime With Inr (06/28/22 20:50) Partial Thromboplastin Time (06/28/22 20:50) Urine Bedside (06/28/22 20:50) Fecal Occult Bedside (06/28/22 20:50) Iohexol Injection (Omnipaque 350 Mg/Ml 1 (06/28/22 21:15) Received Contrast (Hold Metformin- Contr (06/28/22 21:15) Sodium Chloride Flush (Catheter Flush Sy (06/28/22 21:15) Ns (Ivpb) (Sodium Chloride 0.9% Ivpb Bag (06/28/22 21:15) Medications Given in ED Current Medications Medications Dose Ordered Sig/Kishor Route Start Time Stop Time Status Last Admin Dose Admin Iohexol 100 ml ONCE ONCE IV 06/28/22 21:15 06/28/22 21:16 DC 06/28/22 21:20 80 ML Sodium Chloride 10 ml NEEDED PRN IV 06/28/22 21:15 06/28/22 21:20 10 ML Sodium Chloride 100 ml ONCE ONCE IV 06/28/22 21:15 06/28/22 21:16 DC 06/28/22 21:20 100 ML Vital Signs/I&O 06/28/22 20:50 Temp 36.9 Pulse 104 Resp 20 B/P (MAP) 138/99 (112) Pulse Ox 100 O2 Delivery Room Air Progress Progress Note #1: Progress Note Potential diagnosis of colitis, diverticulitis, Crohn's, bleeding hemorrhoids, rectal mass. Obtain peripheral IV access and check complete blood count, comprehensive metabolic profile, coags, urinalysis, urine test. CT scan of the abdomen pelvis with IV contrast to evaluate for possible colitis, diverticulitis, mass. Patient stated that she is not having any pain currently and did not feel like she needed any IV fluids. She plans to follow-up with the clinic tomorrow but because of seeing the blood tonight she became anxious and worried and came to be evaluated. Progress Note #2: Time: 21:51 Progress Note Complete blood count shows white blood cell count of 8.9 and anemia with a hemoglobin of 9.9. I reviewed the radiologist report on the CT scan of the abdomen pelvis with IV contrast and they reported no acute process. They did not see any signs of colitis, diverticulitis, abdominal mass, fluid collection. We will reassure patient and encouraged her to follow-up with Dr. Berg for possible endoscopy or colonoscopy to look for reasons for her symptoms that have been going on for the last 2 months. In the meantime give her information about hemorrhoid care as well. Diagnostic Imaging Diagonstic Imaging: CT Plain Films/CT/US/NM/MRI: abdomen, pelvis Comments [facility]. [place], [place] NAME: DONTAE REYES [facility] REC#: [id number] PT STATUS: REG ER : 1995 PHYSICIAN: JV EDMONDSON MD ADMIT DATE: 06/28/22/ER FS Signed Date of Exam:06/28/22 CT ABDOMEN/PELVIS W PROCEDURE: CT abdomen and pelvis with contrast. TECHNIQUE: Multiple contiguous axial images were obtained through the abdomen and pelvis after administration of intravenous contrast. Auto Exposure Controls were utilized during the CT exam to meet ALARA standards for radiation dose reduction. All CT scans use one or more of the following dose optimizing techniques: automated exposure control, MA and/or KvP adjustment based on patient size and exam type or iterative reconstruction. INDICATION: Abdominal pain, bloody stools. COMPARISON: None FINDINGS: Included views of the lung bases demonstrates no significant abnormality. The liver, spleen, adrenal glands, pancreas, and kidneys are normal. No nephrolithiasis or hydronephrosis. The bowel is nondistended. The gallbladder is normal. The appendix is postsurgical. No free air, loculated fluid collections, or ascites. The aorta is normal. No abdominal pelvic lymphadenopathy. IMPRESSION: No acute findings in the abdomen or pelvis. Dictated by: Dictated on workstation # [id number] Dict: 06/28/222145 Trans: 06/28/222147 [facility] [place] [id number] Interpreted by: PANCHO CHRISTINE DO Electronically signed by: PANCHO CHRISTINE DO 06/28/222147 Reviewed: Reviewed by Me Departure Impression Primary Impression: Rectal pain Additional Impression: Bright red blood per rectum Disposition: HOME, SELF-CARE Condition: Stable Departure-Patient Inst. Decision time for Depature: 21:55 Referrals: SENG MALHOTRA APRN (PCP) Primary Care Physician [facility] (Family) Primary Care Physician KAYLAH BERG MD Patient Instructions: Hemorrhoids ED, Bloody Stools, Adult ED Add. Discharge Instructions: Your CT scan of the abdomen/pelvis does not show diverticulitis, colitis or mass. Your Hemoglobin is showing anemia at 9.9. The bright red blood could be from the hemorrhoid seen on rectal exam. Check back with PCP and with Dr. Berg to see about possible colonoscopy and further evaluation. JV EDMONDSON MD June 28, 2022 21:12
[2022-06-28] MEDS ORDERED: NS 100 ML (IVPB) BAG IV ONE (21:15)
[2022-06-28] MEDS ORDERED: CATHETER FLUSH 10 ML SYR IV PRN (21:15)
[2022-06-28] MEDS ORDERED: HOLD METFORMIN - RECEIVED CONTRAST 20 ML VIAL IV SCH (21:15)
[2022-06-28] MEDS ORDERED: IOHEXOL 350 MG/ML 100 ML (OMNIPAQUE 350) VIAL IV ONE (21:15)
[2022-06-28 21:17] LABS: BASOPHILS # (AUTO) 0.1 10^3/uL (0.0-0.1); BASOPHILS % (AUTO) 1 % (0-10); EOSINOPHILS # (AUTO) 0.2 10^3/uL (0.0-0.3); EOSINOPHILS % (AUTO) 2 % (0-10); HEMATOCRIT 33 % (35-52); HEMOGLOBIN 9.9 g/dL (11.5-16.0); LYMPHOCYTES # (AUTO) 2.6 10^3/uL (1.0-4.0); LYMPHOCYTES % (AUTO) 29 % (12-44); MEAN CORPUSCULAR HEMOGLOBIN 23 pg (25-34); MEAN CORPUSCULAR HGB CONC 30 g/dL (32-36); MEAN CORPUSCULAR VOLUME 77 fL (80-99); MONOCYTES # (AUTO) 0.4 10^3/uL (0.0-1.0); MONOCYTES % (AUTO) 5 % (0-12); NEUTROPHILS # (AUTO) 5.6 10^3/uL (1.8-7.8); NEUTROPHILS % (AUTO) 63 % (42-75); PLATELET COUNT 412 10^3/uL (130-400); WHITE BLOOD COUNT 8.9 10^3/uL (4.3-11.0)
--- NOTE | 2022-06-28 21:50 | Diagnostic Imaging Report ---
PROCEDURE: CT abdomen and pelvis with contrast. TECHNIQUE: Multiple contiguous axial images were obtained through the abdomen and pelvis after administration of intravenous contrast. Auto Exposure Controls were utilized during the CT exam to meet ALARA standards for radiation dose reduction. All CT scans use one or more of the following dose optimizing techniques: automated exposure control, MA and/or KvP adjustment based on patient size and exam type or iterative reconstruction. INDICATION: Abdominal pain, bloody stools. COMPARISON: None FINDINGS: Included views of the lung bases demonstrates no significant abnormality. The liver, spleen, adrenal glands, pancreas, and kidneys are normal. No nephrolithiasis or hydronephrosis. The bowel is nondistended. The gallbladder is normal. The appendix is postsurgical. No free air, loculated fluid collections, or ascites. The aorta is normal. No abdominal pelvic lymphadenopathy. IMPRESSION: No acute findings in the abdomen or pelvis. Dictated by: Dictated on workstation # [id number]
[2022-06-28 21:53] LABS: CARBON DIOXIDE 22 MMOL/L (21-32); CHLORIDE 104 MMOL/L (98-107); INR 0.9 (0.8-1.4); POTASSIUM 3.4 MMOL/L (3.6-5.0); PROTHROMBIN TIME PATIENT 12.5 SEC (12.2-14.7); SODIUM 139 MMOL/L (135-145)
[2022-06-28 21:54] LABS: ALANINE AMINOTRANSFERASE 21 U/L (0-55); ALBUMIN 4.5 GM/DL (3.2-4.5); ALKALINE PHOSPHATASE 111 U/L (40-136); BILIRUBIN,TOTAL < 0.2 MG/DL (0.1-1.0); BUN/CREATININE RATIO 20; CALCIUM 9.5 MG/DL (8.5-10.1); CREATININE SERUM 0.66 MG/DL (0.60-1.30); GFR ESTIMATED 125; GLUCOSE 97 MG/DL (70-105); LIPASE 36 U/L (8-78); TOTAL PROTEIN 7.6 GM/DL (6.4-8.2)
== END 2022-06-28 22:55 | disposition home or self-care (01) ==
LOC: EDUNIT# 20:40 → ER FS 20:41
DX: K62.5 Hemorrhage of anus and rectum (principal); Z86.16 Personal history of COVID-19; Z28.310 Unvaccinated for COVID-19
CPT/HCPCS: 36415; 74177; 80053; 83690; 85025; 85610; 85730

== ENCOUNTER 2022-07-26 16:24 | Emergency (ER) | payer MEDICAID ==
[~2022-07-26] VITALS: Ht 170 cm; Wt 97.1 kg
[2022-07-26] MEDS ORDERED: KETOROLAC 15 MG/ML VIAL IM ONE (16:30)
--- NOTE | 2022-07-26 16:33 | ED Headache ---
General Chief Complaint: Head/Cervical Problems Stated Complaint: MIGRIANE Source: patient Exam Limitations: no limitations History of Present Illness Date Seen by Provider: July 26, 2022 Time Seen by Provider: 16:25 Initial Comments 27-year-old female with past medical history of chronic migraines coming in due to what she states is a migraine. This 1 started yesterday, worsening, moderate to severe, throbbing, on the right side of her head. No nausea or vomiting with it, no weakness, numbness, vision changes, neck stiffness, fever, or any other concerns. She states she gets these weekly and this feels like a typical migraine. She typically takes ibuprofen and/or Tylenol as needed for it. Last dose of ibuprofen was almost 7 hours ago. Allergies and Home Medications Allergies Coded Allergies: No Known Drug Allergies (Unverified , 11/21/13) Patient Home Medication List Home Medication List Reviewed: Yes Cephalexin (Cephalexin) 500 Mg Capsule, 500 MG PO Q6H Prescribed by: JV EDMONDSON on 06/24/212144 Hydrocodone Bit/Acetaminophen (HYDROcodone/APAP 5 MG/325 MG TAB) 1 Tab Tab, 1 TAB PO Q8H PRN for PAIN-SEVERE (8-10) Prescribed by: TIMOTHY SALGADO on 08/06/21 2250 Review of Systems Review of Systems Constitutional: No fever Eyes: No Symptoms Reported Ears, Nose, Mouth, Throat: no symptoms reported Respiratory: no symptoms reported Cardiovascular: no symptoms reported Gastrointestinal: no symptoms reported Genitourinary: no symptoms reported Psychiatric/Neurological: See HPI Past Nhwyrer-Nsoguu-Xtgsvn Hx Patient Social History Use of E-Cig and/or Vaping dev: Unable to obtain Substance use?: No Alcohol Use?: Unable to obtain Immunizations Up To Date First/Initial COVID19 Vaccinat: August 2020 Second COVID19 Vaccination [place]: August 2020 Past Medical History Surgery/Hospitalization HX: Pt reports COVID+ twice in the last 6 months, hyperthyroid Surgeries: Yes (bmt) Respiratory: No Cardiac: No Neurological: Yes Headaches /Migraines Genitourinary: No Gastrointestinal: No Musculoskeletal: No Endocrine: No HEENT: No Cancer: No Psychosocial: No Integumentary: No Blood Disorders: No Physical Exam Vital Signs Capillary Refill : Height, Weight, BMI Height: 5'8.00" Weight: 128lbs. oz. 58.930916ld; 33.00 BMI Method: General Appearance: WD/WN, no apparent distress HEENT: PERRL/EOMI, normal ENT inspection, pharynx normal Neck: non-tender, full range of motion, supple, normal inspection, other (No meningismus) Cardiovascular: regular rate, rhythm, no edema, no murmur Respiratory: chest non-tender, lungs clear, normal breath sounds, no respiratory distress, no accessory muscle use Gastrointestinal: normal bowel sounds, non tender, soft; No distended, No guarding Back: normal inspection Extremities: normal range of motion, non-tender, normal inspection Psychiatric: alert, oriented x 3 Crainal Nerves: normal hearing, normal speech, PERRL Coordination/Gait: normal gait Skin: normal color, warm/dry Progress/Results/Core Measures Results/Orders My Orders Orders - TIMOTHY SALGADO MD Ketorolac Injection (Toradol Injection) (07/26/22 16:30) Progress Progress Note : Progress Note 27-year-old female with above history coming in due to headache. ABCs were intact and vitals were stable on presentation. She has no red flags for headache including no fever, no meningismus, no weakness or numbness or neuro changes otherwise, no trauma, and this is her typical headache. Advanced imaging such as CT not warranted at this point. I offered a typical migraine cocktail, she states she just would prefer the Toradol since Compazine and Benadryl make her feel funny. I believe she is otherwise stable for discharge with outpatient follow-up. She was sent home with strict return precautions. I will recommend follow-up with a neurologist as an outpatient since this occurs so frequently. Departure Impression Primary Impression: Headache Qualified Codes: G44.209 - Tension-type headache, unspecified, not intractable Disposition: 01 HOME, SELF-CARE Condition: Stable Departure-Patient Inst. Decision time for Depature: 16:35 Referrals: SENG MALHOTRA APRN (PCP) Primary Care Physician [facility] (Family) Primary Care Physician Patient Instructions: Headache, Adult ED Add. Discharge Instructions: We do recommend following up with a neurologist since you have headaches so frequently. There are other medications they could put you on to help prevent these from occurring altogether. Work/School Note: Work Release Form Date Seen in the Emergency Department: July 26, 2022 Return to Work: July 27, 2022 Restrictions: No Restrictions TIMOTHY SALGADO MD July 26, 2022 16:33
[2022-07-26 16:40] VITALS: BP 145/97
== END 2022-07-26 16:41 | disposition home or self-care (01) ==
LOC: EDUNIT# 16:24 → ER FS 16:25
DX: G43.909 Migraine, unspecified, not intractable, without status migrainosus (principal); Z86.16 Personal history of COVID-19
CPT/HCPCS: 99284